=== PATIENT | male | born 1945 | race Caucasian/White ===

== ENCOUNTER → 2019-10-15 13:16 | Outpatient (BNVA) | payer MEDICARE, OTHER, SELFPAY | PROVIDERS: PCP Nurse Practitioner Family; Visit Provider Nurse Practitioner Family | DX: I10 Essential (primary) hypertension (principal); R73.9 Hyperglycemia, unspecified; Z86.69 Personal history of other diseases of the nervous system and sense organs; Z12.5 Encounter for screening for malignant neoplasm of prostate; R33.9 Retention of urine, unspecified; Z86.73 Personal history of transient ischemic attack (TIA), and cerebral infarction without residual deficits; E78.5 Hyperlipidemia, unspecified; M15.9 Polyosteoarthritis, unspecified; R32 Unspecified urinary incontinence | CPT/HCPCS: 80053; 80061; 80185; 83036; 84443; 85025; G0103 ==

== ENCOUNTER 2019-12-14 22:18 | Emergency (ER) | payer MEDICARE, OTHER, SELFPAY ==
[2019-12-14 22:29] VITALS: BP 168/88; PULSE 66; RESP 17; TEMP 36.3; O2SAT 97; BMI 25.0
--- NOTE | 2019-12-14 22:30 | W.ED.CHESTPA ---
HPI - Chest Pain General: Chief Complaint: Chest Pain Stated Complaint: chest tenderness Time Seen by Provider: 12/14/19 22:29 Source: patient and family Mode of arrival: ambulatory Limitations: no limitations History of Present Illness: HPI narrative: Patient is a 74-year-old male who presents to ED today with complaint of chest pain that began approximately 3 hours ago while watching television. Patient tells me he had a sudden severe onset of substernal chest pain. He initially thought symptoms might be related to indigestion so he took some Pepto-Bismol. He states he is not sure if this helped his symptoms or not. Patient reports no known cardiac disease. He does have a history of a previous CVA and HTN. Patient states upon arrival pain is completely subsided. Patient states with the episode of pain he did not have any shortness of breath, difficulty breathing, nausea/vomiting, diaphoresis, or palpitations. MD complaint: chest pain Pain radiation: none Relieving factors: nothing Exacerbating factors: nothing Associated symptoms: Deny dyspnea, fever(s), nausea, palpitations, syncope or vomiting Review of Systems Const: Denies: fever(s) or chills Eyes: Denies: change in vision or blurry vision ENMT: Denies: odynophagia Card: Reports: chest pain; Denies: palpitations, irregular heart rhythm, edema, swelling of feet/ankles, lightheadedness, syncope, pre-syncope, dyspnea on exertion, orthopnea or leg pain with exertion Resp: Denies: dyspnea, productive cough, non-productive cough, hemoptysis or chest congestion GI: Denies: nausea or vomiting Musc: Denies: neck pain or back pain Neuro: Denies: headache(s), numbness in extremities, weakness in extremities or sensory changes [facility] ED PFSH: Medical History (Updated 12/15/19 @ 01:14 by DIGNA Armenta) Essential (primary) hypertension History of cerebrovascular accident (CVA) due to ischemia Hx of seizure disorder Hyperglycemia Hyperlipidemia, unspecified Family History Mother Hypertension Father Cancer cancer Social History Smoking and tobacco status: former smoker Alcohol intake: current Alcohol intake frequency: few times a month Caregiver/support person: Yes Lives independently: Yes Household members: spouse Housing: Other Details: travel trailer; travels often Marital status: Current occupational status: retired Current occupational exposures/hazards: No Pets and animals: No History of recent travel: No Current gender identity: Male Physical Exam Const: COMMON NORMALS: no acute distress, average body habitus, patient oriented x3, no limitations, healthy appearing, alert and well nourished ORIENTATION/CONSCIOUSNESS: Yes oriented to person, Yes oriented to place and Yes oriented to time Chest: COMMONS NORMALS: normal inspection of the chest and normal palpation of entire chest wall Resp: COMMON NORMALS: normal respiratory effort and clear to auscultation bilaterally AUSCULTATION: clear to auscultation bilaterally Cardio: COMMON NORMALS: regular rate RATE: regular rate RHYTHM: abnormal rhythm GI: COMMON NORMALS: Normal to inspection, nondistended, normoactive bowel sounds present, Soft to palpation, non-tender, No hepatosplenomegaly present and no masses PALPATION: Yes Soft to palpation and Yes No hepatosplenomegaly present Neuro: COMMON NORMALS: patient oriented x3 SENSORIUM/ORIENTATION: Yes alert, Yes oriented to person, Yes oriented to place and Yes oriented to time Skin: COMMON NORMALS: no rashes or lesions noted GENERAL SKIN EXAM: no rashes or lesions noted Course Vital Signs: Vital signs: Vital Signs Temperature 97.3 F L 12/14/19 22:29 Pulse Rate 65 12/15/19 01:17 Respiratory Rate 18 12/15/19 01:17 Blood Pressure 146/87 12/15/19 01:17 Pulse Oximetry 96 12/15/19 01:17 MDM - Chest Pain MDM Narrative: Medical decision making narrative: Patient has remained pain-free throughout his visit. Patient's initial EKG showing atrial fibrillation which he does not have a history of. He is not complaining of shortness of breath or palpitations. His baseline troponin was 7 with a repeat troponin of 8.27. CXR normal. Patient is on metoprolol for blood pressure. This seems to be doing a good job controlling patient's atrial fibrillation rate. Patient also takes Plavix and aspirin due to a previous CVA. I spoke to Dr. Purvis regarding need for additional anticoagulation. He states we can keep patient on his Plavix and aspirin at this time. We will go ahead and place information with case management to get him set up with a lav crewman. Patient is wanting to go home at this time. Strict return to ED precautions given. Lab Data: Labs: Lab Results 12/14/19 12/14/19 12/14/19 Range/Units 22:34 22:34 22:34 WBC 9.3 (4.0-10.0) 10^3/ uL RBC 5.14 (4.1-5.3) 10^6/u L Hgb 16.0 (11.7-16.6) g/dL Hct 47.7 (42.0-52.0) % MCV 92.8 (80-94) fL MCH 31.1 (28.0-34.0) pg MCHC 33.5 (30.0-36.0) g/dL RDW 13.3 (12.1-15.1) % Plt Count 218 (130-400) 10^3/c mm MPV 10.1 (7.4-10.4) fL Neut % (Auto) 66.1 % Lymph % (Auto) 23.4 % Reagan % (Auto) 6.9 % Eos % (Auto) 2.6 % Baso % (Auto) 0.8 % Neut # (Auto) 6.15 (1.8-7.7) 10^3/u L Lymph # (Auto) 2.2 (0.8-4.8) 10^3/u L Reagan # (Auto) 0.6 (0.2-0.9) 10^3/u L Eos # (Auto) 0.2 (0.0-0.8) 10^3/u L Baso # (Auto) 0.1 (0.0-0.1) 10^3/u L Nucleated RBC % (a uto) 0 % Nucleated RBCs # 0.0 /100WBC Sodium 135 L (136-145) mmol/L Potassium 3.6 (3.5-5.1) mmol/L Chloride 103 (98-107) mmol/L Carbon Dioxide 21 L (22-29) mmol/L Anion Gap 14.6 (5-19) BUN 17 (8-23) mg/dL Creatinine 0.8 (0.7-1.2) mg/dL GFR Calculation Not Reportable Glucose 144 H (65-115) mg/dL Calculated Osmolal ity 279 L (285-295) mOsm/k g Calcium 10.2 (8.5-10.5) mg/dL Total Bilirubin 0.2 (0.15-1.2) mg/dL AST 27 (0-40) U/L ALT 25 (0-41) U/L Alkaline Phosphata se 29 L (40-130) IU/L Troponin T Baselin e 7 (0-15) ng/L Troponin T 120 Min brandon (0-15) ng/L Delta Troponin T (0-10) ABS# Total Protein 7.3 (6.6-8.7) g/dL Albumin 4.9 (3.5-5.2) g/dL Globulin 2.4 (1.3-4.6) g/dL 12/15/19 Range/Units 00:35 WBC (4.0-10.0) 10^3/ uL RBC (4.1-5.3) 10^6/u L Hgb (11.7-16.6) g/dL Hct (42.0-52.0) % MCV (80-94) fL MCH (28.0-34.0) pg MCHC (30.0-36.0) g/dL RDW (12.1-15.1) % Plt Count (130-400) 10^3/c mm MPV (7.4-10.4) fL Neut % (Auto) % Lymph % (Auto) % Reagan % (Auto) % Eos % (Auto) % Baso % (Auto) % Neut # (Auto) (1.8-7.7) 10^3/u L Lymph # (Auto) (0.8-4.8) 10^3/u L Reagan # (Auto) (0.2-0.9) 10^3/u L Eos # (Auto) (0.0-0.8) 10^3/u L Baso # (Auto) (0.0-0.1) 10^3/u L Nucleated RBC % (a uto) % Nucleated RBCs # /100WBC Sodium (136-145) mmol/L Potassium (3.5-5.1) mmol/L Chloride (98-107) mmol/L Carbon Dioxide (22-29) mmol/L Anion Gap (5-19) BUN (8-23) mg/dL Creatinine (0.7-1.2) mg/dL GFR Calculation Glucose (65-115) mg/dL Calculated Osmolal ity (285-295) mOsm/k g Calcium (8.5-10.5) mg/dL Total Bilirubin (0.15-1.2) mg/dL AST (0-40) U/L ALT (0-41) U/L Alkaline Phosphata se (40-130) IU/L Troponin T Baselin e (0-15) ng/L Troponin T 120 Min brandon 8.27 (0-15) ng/L Delta Troponin T 1.27 (0-10) ABS# Total Protein (6.6-8.7) g/dL Albumin (3.5-5.2) g/dL Globulin (1.3-4.6) g/dL Imaging Data^: CXR: Radiologist's impression: [place] [address] XRay Report Signed Patient: Pete Larsen Unit #: [id number] : 1945 Age/Sex: 74 / M ADM Date: 12/14/19 Loc: ER Room/Bed: Attending Dr: Ordering Provider/Ordering MD: Jeannie Michelle Date of Service: 12/14/19 Procedure(s): XR chest 1V portable [id number] Accession Number(s): [id number] Report Number: [id number] PROCEDURE INFORMATION: Exam: XR Chest, 1 View Exam date and time: 12/14/2019 10:40 PM Age: 74 years old Clinical indication: Chest pain; Type not specified TECHNIQUE: Imaging protocol: XR of the chest Views: 1 view. COMPARISON: CR Chest 1 [place] [id number] 05/04/2014 10:17 AM FINDINGS: Lungs: Unremarkable. No consolidation. Pleural space: Unremarkable. No pleural effusion. No pneumothorax. Heart/Mediastinum: Mild cardiomegaly Bones/joints: Unremarkable. XR/XR chest 1V portable [id number] IMPRESSION: Mild cardiomegaly, negative for infiltrate. Dictated By: Jorge Alberto Barron MD Signed By: Jorge Alberto Barron MD Signed Date/Time: 12/14/192338 DD/ 37 Discharge Plan Discharge Patient Disposition: Home Clinical Impression: Atrial fibrillation, new onset Condition: Stable Prescriptions: No Action aspirin 325 mg tablet,delayed release (DR/EC) 325 mg PO QDAY RF: 0 tizanidine 4 mg tablet 4 mg PO TID PRNRF: 0 ergocalciferol (vitamin D2) 400 unit tablet 400 unit PO QDAY RF: 0 atorvastatin [Lipitor] 40 mg tablet 40 mg PO QDAY Qty: 90 RF: 1 clopidogrel 75 mg tablet 75 mg PO QDAY Qty: 90 RF: 1 phenytoin sodium extended [Dilantin Extended] 100 mg capsule See Rx Instructions PO BID Qty: 270 RF: 1 (DME) 18 filipino self cath See Rx Instructions .Route .MEDSUPPLY Qty: 20 RF: 3 (DME) ky chandu See Rx Instructions .Route .MEDSUPPLY Qty: 1 RF: 0 metoprolol tartrate 100 mg tablet 50 mg PO BID Qty: 90 RF: 1 Discharge Orders: Discharge Order (Routine); Ordered 12/15/19 Ordered By: Jeannie Michelle Referrals: Naina Shell FNP [Primary Care Provider] - Patient Instructions: Atrial Fibrillation (ED) Activity Restrictions/Additional Instructions: As discussed case management will contact you early next week to set up your appointment with cardiology. Please return to the emergency department if you begin developing chest pain again, palpitations, shortness of breath, any other concerns you may have. Discharge Date/Time: 12/15/19 01:23 Coding Level of Care Code ED Cloth Spreader Screen Printing for Braydon Castellano Exam Detailed
[2019-12-14 22:35] VITALS: BP 168/88; PULSE 68; RESP 16; O2SAT 96
--- NOTE | 2019-12-14 22:39 | ECG_ITS ---
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 Measurements Intervals [place] Rate: 66 P: PA: -1 QRS: 34 QRSD: 119 T: 51 QT: 408 QTc: 429 Interpretive Statements ATRIAL FIBRILLATION MODERATE INTRAVENTRICULAR CONDUCTION DELAY [110+ ms QRS DURATION] ABNORMAL RHYTHM ECG Compared to ECG 05/04/2014 11:29:48 Intraventricular conduction delay now present Sinus bradycardia no longer present Incomplete right bundle-branch block no longer present Electronically Signed On 12-15-2019 20:36:20 CDT by Tom Seo M.D. [id number]
--- NOTE | 2019-12-14 22:39 | XRR_ITS ---
PROCEDURE INFORMATION: Exam: XR Chest, 1 View Exam date and time: 12/14/2019 10:40 PM Age: 74 years old Clinical indication: Chest pain; Type not specified TECHNIQUE: Imaging protocol: XR of the chest Views: 1 view. COMPARISON: CR Chest 1 [place] [id number] 05/04/2014 10:17 AM FINDINGS: Lungs: Unremarkable. No consolidation. Pleural space: Unremarkable. No pleural effusion. No pneumothorax. Heart/Mediastinum: Mild cardiomegaly Bones/joints: Unremarkable. XR/XR chest 1V portable [id number] IMPRESSION: Mild cardiomegaly, negative for infiltrate.
[2019-12-14 23:06] LABS: Basophils # 0.1 10^3/uL (0.0-0.1); Basophils % 0.8 %; Eosinophils # 0.2 10^3/uL (0.0-0.8); Eosinophils % 2.6 %; Hematocrit 47.7 % (42.0-52.0); Lymphocytes # 2.2 10^3/uL (0.8-4.8); Lymphocytes % 23.4 %; Mean Corpuscular HGB Conc 33.5 g/dL (30.0-36.0); Mean Corpuscular Hemoglobin 31.1 pg (28.0-34.0); Mean Corpuscular Volume 92.8 fL (80-94); Mean Platelet Volume 10.1 fL (7.4-10.4); Monocytes # 0.6 10^3/uL (0.2-0.9); Monocytes % 6.9 %; Neutrophils # 6.15 10^3/uL (1.8-7.7); Neutrophils % 66.1 %; Nucleated Red Blood Cells % 0 %; Platelet Count 218 10^3/cmm (130-400); Red Blood Count 5.14 10^6/uL (4.1-5.3); Red Cell Distribution Width 13.3 % (12.1-15.1); White Blood Count 9.3 10^3/uL (4.0-10.0)
[2019-12-14 23:10] LABS: Alanine Aminotransferase 25 U/L (0-41); Albumin Level 4.9 g/dL (3.5-5.2); Alkaline Phosphatase 29 IU/L (40-130); Anion Gap 14.6 (5-19); Aspartate Amino Transferase 27 U/L (0-40); Blood Urea Nitrogen 17 mg/dL (8-23); Calcium 10.2 mg/dL (8.5-10.5); Carbon Dioxide 21 mmol/L (22-29); Chloride 103 mmol/L (98-107); Creatinine Clr Calc Pharmacy 93.2021; Globulin 2.4 g/dL (1.3-4.6); Glucose 144 mg/dL (65-115); Osmolality Calculated 279 mOsm/kg (285-295); Potassium 3.6 mmol/L (3.5-5.1); Sodium 135 mmol/L (136-145); Total Bilirubin 0.2 mg/dL (0.15-1.2); Total Protein 7.3 g/dL (6.6-8.7)
[2019-12-14 23:12] LABS: Troponin(5th) Baseline 7 ng/L (0-15)
[2019-12-14 23:19] VITALS: BP 132/82; PULSE 62; RESP 17; O2SAT 97
[2019-12-15] VITALS: BP 149/87; PULSE 64; RESP 17; O2SAT 96
--- NOTE | 2019-12-15 00:39 | ECG_ITS ---
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 Measurements Intervals [place] Rate: 63 P: [place]: -1 QRS: 40 QRSD: 113 T: 52 QT: 392 QTc: 401 Interpretive Statements ATRIAL FIBRILLATION INCOMPLETE RIGHT BUNDLE BRANCH BLOCK [90+ ms QRS DURATION, TERMINAL R IN V1/V2, 40+ ms S IN I/aVL/V4/V5/V6] ABNORMAL RHYTHM ECG Compared to ECG 05/04/2014 11:29:48 Sinus bradycardia no longer present Electronically Signed On 12-15-2019 20:45:32 CDT by Tom Seo M.D. [id number]
[2019-12-15 01:00] VITALS: BP 133/73; PULSE 57; RESP 17; O2SAT 97
[2019-12-15 01:01] LABS: Troponin 5 2HR 8.27 ng/L (0-15); Troponin 5 2HR Delta 1.27 ABS# (0-10)
--- NOTE | 2019-12-15 01:10 | PC.NURSE ---
0040 V ERBAL ORDER FROM MANUEL JAVED TO HOLD OFF ON EKG AT THIS TIME. PT HAS ALREADY HAD 2 EKG AND VERBAL ORDER TO HOLD ON EKG ORDERED FOR 0039.
[2019-12-15 01:17] VITALS: BP 146/87; PULSE 65; RESP 18; O2SAT 96
--- NOTE | 2019-12-17 14:46 | PC.SOCIAL ---
Spoke with Yudith at [facility] regarding referral for Cardiology. Appt scheduled for 12/20/[address] Cespedes. Notified patient date/ time of appt. No further questions voiced other than asked if anything needed to bring. Explained ins cards and ID.
--- NOTE | 2019-12-21 10:35 | DCPLANNER ---
Patient did attend appointment scheduled for 12.20.19 with [facility].
== END 2019-12-15 01:23 | disposition home or self-care (01) ==
PROVIDERS: Emergency Provider Physician Assistant; PCP Nurse Practitioner Family
DX: I48.91 Unspecified atrial fibrillation (principal); Z79.82 Long term (current) use of aspirin; Z79.02 Long term (current) use of antithrombotics/antiplatelets; I10 Essential (primary) hypertension; Z86.73 Personal history of transient ischemic attack (TIA), and cerebral infarction without residual deficits; E78.5 Hyperlipidemia, unspecified; Z87.891 Personal history of nicotine dependence
CPT/HCPCS: 12345; 71045; 80053; 84484; 85025; 93005; 99283

== ENCOUNTER → 2024-10-29 09:03 | Outpatient (BNVA) | payer MEDICARE, SELFPAY | PROVIDERS: PCP Electrodiagnostic Medicine; Visit Provider Physician Assistant | DX: M25.511 Pain in right shoulder (principal); M19.011 Primary osteoarthritis, right shoulder | CPT/HCPCS: 20610; 73030; 99213; J3301; J9999 ==